=== PATIENT | male | born 1985 | race African-American/Black ===

== ENCOUNTER 2024-07-15 04:44 | Emergency (ER) | payer OTHER ==
[~2024-07-15] VITALS: Ht 170.2 cm; Wt 82.0 kg
[2024-07-15 05:02] VITALS: BP 139/82; PULSE 92; RESP 18; TEMP 98.1; O2SAT 96
[2024-07-15] MEDS: ACETAMINOPHEN 500 MG TABLET PO ONE (05:30)
[2024-07-15] MEDS: methocarbamoL 500 MG TABLET PO ONE (05:30)
[2024-07-15] MEDS: IBUPROFEN 600 MG TABLET PO ONE (05:30)
== END 2024-07-15 06:00 ==
LOC: EMS 04:46
DX: M54.42 Lumbago with sciatica, left side (principal); V89.2XXA Person injured in unspecified motor-vehicle accident, traffic, initial encounter; Y93.89 Activity, other specified; Y92.89 Other specified places as the place of occurrence of the external cause; Y99.8 Other external cause status
CPT/HCPCS: 99284; Z7502; Z7610